=== PATIENT | female | born 1995 | race Two or more races ===

== ENCOUNTER 2024-01-20 07:26 | Emergency (ER) | payer OTHER ==
[~2024-01-20] VITALS: Ht 165.1 cm; Wt 74.8 kg
[2024-01-20] MEDS ORDERED: PRENATE ELITE1 EAC2 (07:35)
[2024-01-20] MEDS ORDERED: IRON236 MG (07:35)
[2024-01-20] MEDS ORDERED: 0.9 % SODIUM CHLORIDE 1,000 ML IV ONE (08:45)
[2024-01-20] MEDS ORDERED: ACETAMINOPHEN 325 MG TABLET PO ONE (08:45)
[2024-01-20 09:43] LABS: HEMATOCRIT 31.2 % (36.0-45.00); HEMOGLOBIN 10.5 g/dL (12.0-15.00); MEAN CELL VOLUME 83.6 fL (80.00-100.00); MEAN CORPUSCULAR HEMOGLOBIN 28.1 pg (27.00-32.0); MEAN CORPUSCULAR HGB CONC 33.6 g/dl (32.0-36.0); PLATELET COUNT 202 K/uL (150-450); RED BLOOD COUNT 3.73 M/uL (4.00-6.00); RED CELL DISTRIBUTION WIDTH 15.1 % (11.5-14.5)
[2024-01-20] MEDS ORDERED: DELSYM30 MG/5 M1 PO (11:03)
== END 2024-01-20 11:25 | disposition home or self-care (01) ==
LOC: ER 07:28
PROVIDERS: General Practice
DX: Z34.90 Encounter for supervision of normal pregnancy, unspecified, unspecified trimester (principal); R53.81 Other malaise; J00 Acute nasopharyngitis [common cold]; Z20.822 Contact with and (suspected) exposure to COVID-19

== ENCOUNTER 2024-03-13 15:38 | Outpatient (CLI) | payer OTHER ==
[~2024-03-13 15:38] MED LIST: DELSYM30 MG/5 M1 PO; IRON236 MG; PRENATE ELITE1 EAC2
== END 2024-03-13 15:47 | disposition home or self-care (01) ==
LOC: PRENATAL 15:38
PROVIDERS: ATTEND Obstetrics & Gynecology Maternal & Fetal Medicine
DX: O26.849 Uterine size-date discrepancy, unspecified trimester (principal); O36.8199 Decreased fetal movements, unspecified trimester, other fetus; O24.419 Gestational diabetes mellitus in pregnancy, unspecified control; Z3A.37 37 weeks gestation of pregnancy

== ENCOUNTER 2024-03-15 08:13 | Inpatient (IN) | payer OTHER ==
[~2024-03-15] VITALS: Ht 162.6 cm; Wt 86.2 kg
[2024-03-15 08:31] VITALS: BP 137/67
[2024-03-15] MEDS ORDERED: RINGERS SOLUTION,LACTATED 1,000 ML IV SCH (09:00)
[2024-03-15] MEDS ORDERED: MISOPROSTOL 25 MCG/4 ML GEL.W.APPL VAG ONE ×2 (09:15→13:45)
[2024-03-15 09:30] LABS: PH,URINE 6.5 (5.0-8.0); URINE APPEARANCE Clear; URINE BILIRRUBIN Negative (NEGATIVE); URINE BLOOD Negative; URINE COLOR Yellow; URINE GLUCOSE Negative (NEGATIVE); URINE KETONE Negative (NEGATIVE); URINE LEUKOCYTE Negative; URINE NITRATE Negative; URINE PROTEIN Negative (NEGATIVE); URINE UROBILINOGEN 0.2 E.U./dl
[2024-03-15 09:34] LABS: HEMATOCRIT 37.3 % (36.0-45.00); HEMOGLOBIN 12.5 g/dL (12.0-15.00); MEAN CELL VOLUME 84.9 fL (80.00-100.00); MEAN CORPUSCULAR HEMOGLOBIN 28.4 pg (27.00-32.0); MEAN CORPUSCULAR HGB CONC 33.5 g/dl (32.0-36.0); PLATELET COUNT 210 K/uL (150-450); RED BLOOD COUNT 4.39 M/uL (4.00-6.00)
[2024-03-15 09:36] LABS: URINE BACTERIA 1829.8 uL (0.0-1933); URINE EPITHELIAL CELLS 86.1 uL (0.0-38.8); URINE RBC 2.7 uL (0.0-20.8); URINE WBC 15.3 uL (0.0-23.2)
[2024-03-15 09:46] LABS: URINE CAST 0.14 uL (0.0-1.40)
[2024-03-15 09:52] LABS: INR 0.94; PROTHROMBIN TIME 10.3 SECONDS (9.0-11.5)
[2024-03-15 10:31] LABS: ALBUMIN 2.8 gm/dL (3.4-5.0); BILIRUBIN TOTAL 0.42 mg/dL (0.3-1.2); CALCIUM 9.1 mg/dL (8.5-10.1); CREATININE SERUM 0.4 mg/dL (0.55-1.02); GFR 188.71; GLOBULINA 3.7 G/DL (2.4-3.5); POTASSIUM 4.13 mEq/L (3.5-5.1); TOTAL PROTEIN 6.5 gm/dL (6.4-8.2)
[2024-03-15 12:08] VITALS: BP 132/68
[2024-03-15] MEDS ORDERED: MISOPROSTOL 25 MCG/4 ML GEL.W.APPL ONE (13:34)
[2024-03-15] MEDS ORDERED: DEXTROSE 5%-LACTATED RINGERS 1,000 ML IV ONE (13:45)
[2024-03-15] MEDS ORDERED: CEFAZOLIN SODIUM 1,000 MG VIAL ONE (17:43)
[2024-03-15] MEDS ORDERED: CEFAZOLIN SODIUM 1,000 MG VIAL IV ONE (17:45)
[2024-03-15] MEDS ORDERED: ERYTHROMYCIN BASE OPHT 1GM EACH TUBE OP ONE ×2 (18:58→21:45)
[2024-03-15] MEDS ORDERED: OXYTOCIN 10 UNITS/ML VIAL ONE (18:58)
[2024-03-15] MEDS ORDERED: OXYTOCIN 1,000 ML IV SCH (21:45)
[2024-03-15] MEDS ORDERED: MORPHINE SULFATE 4 MG/ML VIAL IV ONE (22:40)
[2024-03-16] MEDS ORDERED: PROMETHAZINE HCL 25 MG/ML AMPUL IM SCH (01:00)
[2024-03-16 02:22] VITALS: BP 109/64
[2024-03-16] MEDS ORDERED: MEPERIDINE HCL/PF 50 MG/ML VIAL IV SCH (05:00)
[2024-03-16 06:11] LABS: HEMATOCRIT 32.5 % (36.0-45.00); HEMOGLOBIN 11.1 g/dL (12.0-15.00); MEAN CELL VOLUME 84.6 fL (80.00-100.00); MEAN CORPUSCULAR HEMOGLOBIN 28.9 pg (27.00-32.0); MEAN CORPUSCULAR HGB CONC 34.2 g/dl (32.0-36.0); PLATELET COUNT 181 K/uL (150-450); RED BLOOD COUNT 3.84 M/uL (4.00-6.00); RED CELL DISTRIBUTION WIDTH 16.2 % (11.5-14.5)
[2024-03-16 08:15] VITALS: BP 108/68
[2024-03-16] MEDS ORDERED: DOCUSATE SODIUM 100MG CAP PO SCH ×2 (09:00→17:00)
[2024-03-16] MEDS ORDERED: PNV,CALCIUM 72/IRON/FOLIC ACID 1 TAB TABLET PO SCH (09:00)
[2024-03-16] MEDS ORDERED: SIMETHICONE 125 MG CAPSULE PO SCH (09:00)
[2024-03-16] MEDS ORDERED: OxyCODONE HCL/APAP UD (PERCOCET) PO PRN (11:45)
[2024-03-16 16:16] VITALS: BP 120/60
[2024-03-17] VITALS: BP 123/85
[2024-03-17 08:33] VITALS: BP 117/76
[2024-03-17 17:52] VITALS: BP 113/76
[2024-03-17] MEDS ORDERED: GUAIFENESIN 200 MG/10 ML BLIST.PACK PO SCH (18:00)
[2024-03-18 00:22] VITALS: BP 120/79
[2024-03-18 16:00] VITALS: BP 114/77
== END 2024-03-18 16:45 | disposition home or self-care (01) | DRG 788 ==
LOC: LDR 08:13 → OB/GYN 08:13 → O/R 20:26 → OB/GYN 21:42
PROVIDERS: Obstetrics & Gynecology; ADMIT Obstetrics & Gynecology; ATTEND Obstetrics & Gynecology
PROC: 3E033VJ Introduction of Other Hormone into Peripheral Vein, Percutaneous Approach (ICD-10-PCS; 2024-03-15)
PROC: 3E0P7VZ Introduction of Hormone into Female Reproductive, Via Natural or Artificial Opening (ICD-10-PCS; 2024-03-15)
PROC: 4A1HXCZ Monitoring of Products of Conception, Cardiac Rate, External Approach (ICD-10-PCS; 2024-03-15)
PROC: 10D00Z1 Extraction of Products of Conception, Low, Open Approach (ICD-10-PCS; principal; 2024-03-15 19:30)
DX: O61.0 Failed medical induction of labor (principal); O24.420 Gestational diabetes mellitus in childbirth, diet controlled; Z3A.37 37 weeks gestation of pregnancy; Z37.0 Single live birth